=== PATIENT | female | born 1935 | race Caucasian/White ===

== ENCOUNTER 2020-08-29 16:17 | Inpatient (IN) | payer OTHER ==
[~2020-08-29] VITALS: Ht 162.6 cm; Wt 46.9 kg
--- NOTE | 2020-08-29 17:54 | NUR ---
PATIENT IS AN 85 YEAR OLD FEMALE WHO ARRIVED TO THE [facility] UNIT FROM [facility] AT 1441HOURS, ACCOMAPNIED BY TWO PARAMEDICS. PATIENT IS ALERT, AND ORIENTED X 1-2, KNOWS HER NAME, AND PLACE. LCTA, RESP EVEN, UNLABORED, NO SOA/CYANOSIS NOTED. BS+X4, ABD SOFT, NON-TENDER TO TOUCH. PATIENT USES WHEEL CHAIR FOR MOBILITY, GAIT UNSTEADY. ACCORDING TO REPORT, PATIENT LIVES AT [facility], SENT TO [facility] FOR ULTERED MENTAL STATUS. REPORT ALSO STATES PATIENT WAS PRESENTING WITH INCREASE AGGRESSION, LABILE, NON-SENSICAL SPEECH, INCREASE AUDITORY HALLUCINATION, DELUSION-SEEING ANTS, YELLING, HITTING, AND KICKING TRASH CAN. OTHER MNEDICAL HX INCLUDES DEPRESSION, HTN, HLD, OSTEOPOROSIS, COVID POSITIVE ON 08/06/20, AND COVID NEGATIVE ON 08/28/20. PATIENT HAD MED FORMED SOFT BOWEL MOVEMENT SHORTLY AFTER ARRIVAL TO THE UNIT, GOOD PERICARE GIVEN. TREATMENT/FALL CONSENT OBTAINED FROM DPOA -SON (TONE) VIA PHONE. PATIENT IS ABLE TO FEED SELF, APPETITE FAIR. PATIENT CURRENTLY IN DAY ROOM SITTING ON A WHEELCHAIR. PATIENT DENIES SUICIDAL IDEATION. NO AGGRESSION OR AGITATION NOTED AT THIS TIME. NO SIGN OF ACUTE DISTRESS NOTED, WILL MONITOR FOR SAFETY.
[2020-08-29 20:15] VITALS: BP 139/82
[2020-08-30 00:36] VITALS: BP 139/82
--- NOTE | 2020-08-30 00:44 | NUR ---
Assumed care on 08/29/20 @ 19:15, seated in a w/c in the day room. Alert and oriented x2 to person and place. Cooperates with assessment, HRRR, LungsCTA, ABD Nx4Q. Takes meds whole with water. Cooperates in care and able to stand and transfer to toilet and bed. Will continue to monitor for safety and comfort as per unit protocol.
[2020-08-30 07:25] VITALS: BP 148/63
[2020-08-30 11:56] VITALS: BP 148/63
--- NOTE | 2020-08-30 17:30 | NUR ---
1710 RESUMMED CARE FROM OVERNIGHT SHIFT THIS AM, PATIENT IN ROOM ASLEEP WOKE PATIENT UP TO COME TO DAY ROOM. PATIENT ATE BREAKFAST TOOK MEDICATION WITHOUT INCIDENCE. PATIENTS ABDOMEN SOFT FLAT BOWEL SOUNDS PRESENT LUNGS CLEAR PATIENT ORIENT TO SELF AND PLACE. PATIENT DENIES SI/HI/AH/VH AT PRESENT PATIENT HAS NOT DISPLAYED ANY BEHAVIORS. WILL CONTINUE TO MONITOR PATIENT FOR SAFETY AND BEHAVIORS.
[2020-08-30 19:42] VITALS: BP 105/54
--- NOTE | 2020-08-31 04:34 | NUR ---
Assumed care of pt @ 1900. Pt calm et cooperative this shift. Took medications crushed in pudding without difficulty. Ambulates with assistance of w/c. GEORGES. Health assessment with no abnormalities noted at present time. Denies SI/HI/AVH at present time. Currently resting in bed with eyes closed. Will continue to monitor per unit protocol.
[2020-08-31 07:52] VITALS: BP 128/70
--- NOTE | 2020-08-31 10:49 | NUR ---
Care assumed of patient at 0715: Patient resting in bed at start of shift. Alert and oriented to person only. Confused and forgetful. Calm and cooperative. Ate 40% breakfast and 100% Ensure supplement. Took AM medication crushed without difficulty. Continent of bladder. Requires mod assist x1 for transfers. No aggression or agitation observed. Denies SI/HI/AH/VH. No delusional or paranoia behaviors observed. Currently watching animal video with peers in dayroom.
--- NOTE | 2020-08-31 16:14 | H ---
[facility] [place] [address] HISTORY AND PHYSICAL Name: ALISON DANG Room #: 520B-B ADM IN M.R.#: [id number] Admission: 08/29/20 Attend Phys: Scott Rincon DO Discharge: Date of : 39 Report #: [id number] THIS REPORT FOR: cc: ZEESHAN - No family physician/PCP FAM - No family physician/PCP Scott Rincon DO ~ CC: Scott BYERS physician/PCP DATE OF SERVICE: 08/29/2020 INPATIENT PSYCHIATRIC EVALUATION ATTENDING PSYCHIATRIST: Scott Rincon DO HEALTH UNIT CLERK: Mike Mayo MD REASON FOR PSYCHIATRIC ADMISSION: Change in behavior, isolating in room, decreased eating, drinking and hygiene, increased aggression, labile mood with nonsensical speech, increased frequency of auditory and visual hallucinations, yelling, hitting nurse, taking trashcans in hands for last two 2 weeks. HISTORY OF PRESENT ILLNESS: This is an 85-year-old female residing at [facility] since 2007, who is medically cleared and seen in the [facility] ED. The patient has a past medical history of dementia, schizophrenia, fainting spells, hypothyroidism, GERD, coronary artery disease, seizures, osteoporosis. PSYCHIATRIC HISTORY/ Medical History: Includes as stated depression, schizophrenia and dementia. Additional medical problems, hypertension and hyperlipidemia. She was COVID positive on 08/06/2020 and negative 08/28/2020. She was treated for pneumonia with a Z-JORGE. Her PCP is Dr. Wilson. Pneumonia vaccine 11/04/2015. Flu shot 07/18/2020. From the [facility] ER, their signature screener found out that since being isolated to a different room the patient is decompensated, this probably was due to COVID isolation as stated above, decreased eating, drinking, hygiene, increasing aggressiveness. Apparently, she had a similar episode in wheelchair today. . The patient can walk, but she chooses not to. Apparently, she has not worked in years. Per son she goes through these episodes. She has been yelling at her roommate last few days, taking trashcans, very delusional, seeing things on the floor, disorganized. [facility] [address] [place] [address] HISTORY AND PHYSICAL Name: ALISON DANG Room #: 520B-B ADM IN M.R.#: [id number] Admission: 08/29/20 Attend Phys: Scott Rnicon DO Discharge: Date of : 39 Report #: [id number] Apparently, she drinks coffee all day yesterday, nothing today and is complaining before. Basically, the rest of the screeners notes are reptition of what I have already described. ADDITIONAL INFORMATION: From [facility] medications are fairly numerous, olanzapine 1.25 mg oral once a day, then 7 days, then stop. zonisamide 100 mg oral daily, hydrocodone/acetaminophen 5/325 one to two tabs q. 4 hours p.r.n., Synthroid 100 mcg daily, lisinopril 2.5 mg daily, folic acid 0.8 mg p.o. daily, "medication" 20 mg oral capsule daily, Tylenol p.r.n., meclizine 12.5 mg oral 3 times daily as needed for dizziness, artificial tears, albuterol She is also on Keppra 1500 mg twice per day, Lamictal 250 mg daily, Lipitor 20 mg oral daily. SARS-CoV-2 tests from 08/06/2020 was verified. LABORATORY DATA: From the ER, white count 6.2, H and H 12.8 and 33.8, platelet count 202. Absolute neutrophil count 4.54. Sodium 149, potassium 4.3, chloride 111, bicarbonate 23, glucose 94, BUN 34, creatinine 0.8, AST 31, alkaline phosphatase 101, ALT 20, direct bilirubin 0.4, total bilirubin 0.7, total protein 7.3, albumin 4.2, globulin 3.1, calcium 9.9, estimated GFR greater than 60. Troponin high sensitivity so it was 25, which I guess we are worried about. TSH 0.535. Urine drug screen was negative. Stat urine was positive for phencyclidine. She is not an illicit drug user. Coronavirus test was negative. PT 7.2. INR 1.5, PTT 30.3. Urinalysis was negative. EKG done at [facility] showed sinus rhythm, QTc 426, QT 350 milliseconds, NH interval 199 milliseconds. On interview, the patient was not oriented to month, day, date, year. There is some slowness of response. PHYSICAL EXAMINATION: MUSCULOSKELETAL: Seated in wheelchair. Gait not tested. MENTAL STATUS EXAMINATION: This is a well-developed, unkempt appearing female appearing at least stated age. Attention limited. Concentration limited. Speech slow, soft. Thought process is linear and very limited in what she could track with. Thought content, relative poverty of thought. No psychomotor agitation. No psychomotor retardation. She did mention she did not like being here. Denied pain, denied other complaints. Denies thoughts of harming herself or others. Denied auditory, visual, or tactile hallucinations. Memory not formally tested, known to be impaired. Insight impaired, judgment impaired. Fund of knowledge well below average. FORMULATION: An 85-year-old female sent over from [facility] via the [facility] for a decompensation in behavior. The patient with a [facility] [address] [place] [address] HISTORY AND PHYSICAL Name: ALISON DANG Room #: 520B-B ADM IN M.R.#: [id number] Admission: 08/29/20 Attend Phys: Scott Rincon DO Discharge: Date of : 39 Report #: [id number] known history of a neurodegenerative disorder and schizophrenia spectrum illness. DIAGNOSES: At this time, major neurocognitive disorder with behavioral disturbance, schizophrenia by history and current recommendations at this time, would continue zonisamide 100 mg p.o. daily, lamotrigine 250 mg p.o. b.i.d., Keppra 1500 mg p.o. b.i.d. OTHER CONCERNS: The patient has treatment resistant seizures likely since she is on 3 anticonvulsants I would like to see how the patient looks tomorrow morning, so I am going to hold off starting an antipsychotic. PLAN: Evaluate and Stabilize. We will need to make contact with her DPOA is staying so I need to get additional information from them about the case in which she was felt best to be. Time spent on this case about 45 minutes. STRENGTHS: She is insured, has family support. WEAKNESSES: Pretty advance dementia, poor coping skills. She is a full code. ALLERGIES: No known allergies. <ELECTRONICALLY SIGNED> By: Scott Rincon DO 08/31/20 1614 [id number] Scott Rincon DO /nt
[2020-08-31 19:34] VITALS: BP 104/62
[2020-08-31 21:46] VITALS: BP 128/70
--- NOTE | 2020-09-01 05:22 | NUR ---
ASSUMED PT'S CARE @ 1900. PT ORIENTED TO SELF. CONFUSED. FORGETFUL. PT WAS PLEASANT AND COOPERATIVE WITH CARE. PT WAS ON W/C SITTING IN THE DAYROOM BEGINNING OF SHIFT. PT FINALLY LAID BACK IN BED AT ABOUT 2200 AND CURRENTLY STILL IN BED. PT HOWEVER, DID NOT GET ANY SLEEP THIS SHIFT. PT CURRENTLY IN BED, LAYING QUIETLY STILL AWAKE. FALL PRECAUTIONS IN PLACE. WILL CONTINUE TO MONITOR.
[2020-09-01 10:18] VITALS: BP 125/65
--- NOTE | 2020-09-01 11:01 | NUR ---
1100 RESUMMED CARE FROM OVERNIGHT SHIFT THIS AM, PATIENT IN DAYROOM QUIET. PATIENT ATE BREAKFAST TOOK MEDICATION CRUSHED IN APPLESAUCE, PATIENTS ABDOMEN SOFT FLAT BOWEL SOUNDS PRESENT. LUNGS CLEAR PATIENT ORIENTED TO SELF PATIENT; IS CONFUSED AND CANNOT TELL ME ABOUT SI/HI/AH/VH AT PRESENT. PATIENT HAS NOT DISPLAYED ANY BEHAVIORS WILL CONTINUE TO MONITOR FOR SAFETY AND BEHAVIORS.
--- NOTE | 2020-09-01 15:10 | NUR ---
SW completed patients assessment and treatment plan with patients Arash Duffy who is also her DPOA.
[2020-09-01 19:38] VITALS: BP 101/61
--- NOTE | 2020-09-02 01:09 | NUR ---
Assumed care of patient this pm shift. Patient is impulsive and likes to wander in the wheelchair. Alert and oriented to self only. Very confused. Denies hi/si. Denies pain. Vital signs are stable. Assessment shows no signs of acute distress. Patient takes medications whole with thin liquids. We will continue to monitor per hospital policy.
[2020-09-02 09:46] VITALS: BP 120/63
--- NOTE | 2020-09-02 18:25 | NUR ---
0700 ASSUMED CARE OF PATIENT, PATIENT IN BED AT THAT TIME. 0800 PATIENT ASSISTED TO TRANSFER TO AND OUT TO DAYROOM. LAP RACHELLE ON WITH FASTEN TO FRONT. PATIENT UNSTEADY WITH TRANSFER. PATIENT ATE BREAKFAST FEEDING SELF. PATIENT CALM AND QUIET, DOES NOT ANSWER QUESTIONS. LS CLEAR, BS ACTIVE. MEDICATIONS REFUSED BY PATIENT. NOTIFIED. PATIENT WORKED WITH PT TODAY. SLEEPING IN DAYROOM OFF AND ON.
[2020-09-02 20:27] VITALS: BP 122/73
[2020-09-02 20:40] VITALS: BP 122/73
[2020-09-03 09:02] VITALS: BP 117/64
--- NOTE | 2020-09-03 10:13 | NUR ---
[facility]ULEMA received the fax number of to fax updates to. ZULEMA faxed updates to [facility]. ZULEMA team will continue to update pt during her stay on this unit.
--- NOTE | 2020-09-03 18:39 | NUR ---
0700 ASSUMED CARE OF PATIENT, PATIENT ASLEEP IN BED AT THAT TIME. PATIENT OUT TO DAYROOM VIA WC WITH ASSIST X1 TRANSFERING. PATIENT FEEDS SELF AND REFUSES HELP. MEDICATIONS GIVEN WITH OUT DIFFICULTY IN AM. PATIENT NOTED PROPELLING SELF IN WC. SLEEPS OFF AND ON IN DAYROOM. VS WNL, NO FEVER, NO COUGH NOTED. LUNG SOUNDS CLEAR, BS ACTIVE. PATIENT CALM AND COOPERATIVE.
[2020-09-03 19:30] VITALS: BP 118/63
--- NOTE | 2020-09-04 05:00 | NUR ---
09-03-20 CARE TRANSFERRED 0. PT AAOX1, VSS, RR EVEN AND NONLABORED ON RA. PT DENIES ANY PAIN AND SI/HI. PT PRESENTED CALM AND COOPERATIVE, PT TOLERATED COVID PCR TESTING WELL. DURING MEDICATION ADMIN PT HAD NO DIFFICULTIES. LATER RECEIVED UPDATE FROM LAB THAT PT IS COVID19 POSITIVE. ZERO S/S OF ACUTE DISTRESS NOTED. 0510 REPORT GIVEN TO RN IN SICU, CARE IS TRANSFERRING.
--- NOTE | 2020-09-04 06:09 | NUR ---
PT TRANSFERRED TO RM 22O FROM 5S @ ABOUT 0540. PT RESTING COMFORTABLY IN BED. COVID +. FALL PRECAUTIONS IN PLACE. CALL LIGHT WITHIN REACH. WILL CONTINUE TO MONITOR.
[2020-09-04 10:00] VITALS: BP 140/46
[2020-09-04 11:48] VITALS: BP 140/46
--- NOTE | 2020-09-04 12:03 | NUR ---
ZULEMA contacted [facility] and provided an update to the compliance administrator about pt being ready for d/c. The admin and ZULEMA agreed upon an 11am discharge in which will transport pt back to her facility. ZULEMA team will continue to follow pt during her stay on this unit.
--- NOTE | 2020-09-04 13:37 | NUR ---
1335 RESUMMED CARE FROM OVERNIGHT THIS AM, PATIENT IN ROOM SLEEPING. PATIENTS ABDOMEN SOFT FLAT BOWEL SOUNDS PRESENT LUNGS CLEAR. PATIENT IS ORIENTED TO SELF ONLY. PATIENT NOT EATING OR DRINKING TO MUCH, SHE CANNOT TELL ME ABOUT SI/HI/AH/VH. PATIENT HAS UNSPECIFIED PSYCHOSIS PATIENT QUIET CALM WILL CONTINUE TO MONITOR FOR SAFETY AND BEHAVIORS. WILL ALSO ENCOURAGE DRINKING AND EATING.
[2020-09-04 21:03] VITALS: BP 140/65
--- NOTE | 2020-09-05 05:48 | NUR ---
PT ORIENTED TO HIMSELF. CONFUSED. PT WAS CALM AND COOPERATIVE WITH CARE. TOOK MEDS WHOLE ORDERED. FALL PRECAUTION IN PLACE. PT SLEPT WELL THIS SHIFT. CALL LIGHT WITHIN REACH. NO BM NOTED TODAY. WILL CONTINUE TO MONITOR.
[2020-09-05 07:50] VITALS: BP 124/74
[2020-09-05 09:32] VITALS: BP 124/74
[2020-09-05] MEDS ORDERED: LISINOPRIL2.5 MG PO (10:50)
[2020-09-05] MEDS ORDERED: ZONISAMIDE 100100 M1 PO (10:51)
[2020-09-05] MEDS ORDERED: HALOPERIDOL 1 MG1 MG PO (10:52)
[2020-09-05] MEDS ORDERED: LAMICTAL100 MG PO (10:52)
[2020-09-05] MEDS ORDERED: KEPPRA 500 MG500 M1 PO (10:52)
[2020-09-05] MEDS ORDERED: SYNTHROID100 MC1 PO (10:53)
[2020-09-05] MEDS ORDERED: FOLIC ACID1 MG PO (10:53)
--- NOTE | 2020-09-05 11:18 | NUR ---
PT LAYING IN BED COMFORTABLY WITH NO SIGNS OF BEHAVIORAL ISSUES. WILL ENGAGED IN SMALL CONVERSATION. ORIENTED TO SELF. CONFUSED AND FORGETFUL. DISCHARGE ORDERS BY DR. GREENE. REPORT CALLED TO RECIEVING RN AT FACILITY. PATIENT LEFT FACILITY IN WHEELCHAIR WITH TRANSPORTING TO MAIN ENTERANCE. CHART COPY SENT WITH PATIENT.
--- NOTE | 2020-09-10 22:59 | D ---
[facility] [place] [address] DISCHARGE SUMMARY Name: ALISON DANG Room #: 220-P [facility] IN M.R.#: [id number] Admission: 08/29/20 Attend Phys: Scott Rincon DO Discharge: 09/05/20 Date of : 39 Report #: [id number] THIS REPORT FOR: cc: FAM - No family physician/PCP FAM - No family physician/PCP Scott Rincon DO ~ DATE OF SERVICE: 09/05/2020 INPATIENT PSYCHIATRIC DISCHARGE SUMMARY ATTENDING PSYCHIATRIST: Scott Rincon DO. MEDICAL STAFF ASSISTANT: Mike Mayo M.D. DISCHARGE DIAGNOSES: Unspecified psychosis, improved. The patient has a history of major neurocognitive disorder. She does have a significant seizure disorder history. ADDITIONAL MEDICAL COMORBIDITIES: As follows: They include COVID-19 positive, residual infiltrate, currently not experiencing shortness of breath; hypertension, on lisinopril; hypothyroidism, on levothyroxine; hyperlipidemia, on statin; history of seizure disorder, not sure that is true, but hospitalist noted it. DISCHARGE PLAN: The patient is discharged to [facility], where she was residing before the hospitalization. The patient will receive psychiatric and medical care provided by that facility. Her DPOA is her son, Andrez, spoke to earlier on admission. DISCHARGE MEDICATIONS: As follows: Lisinopril 2.5 mg oral daily for hypertension; lamotrigine 250 mg p.o. daily for seizure disorder; Keppra 1500 mg p.o. b.i.d. for seizure disorder; zonisamide 100 mg p.o. daily; haloperidol 1 mg at 0900, 1500, 2100 for psychosis, leave her on that for now and taper off after roughly 2 weeks at nursing facility; levothyroxine 100 mcg oral daily for hypothyroidism; folic acid 1 mg p.o. daily. LABORATORY DATA: Significant laboratories from this admission, she was COVID-19 positive coming into it. She was retested by accident earlier this week and she was positive there. All her laboratories were done at the hospital she was at for emergency room purposes. REASON FOR ADMISSION: An 85-year-old female, residing at [facility] since 2007. Apparently, she has had decreased eating, isolating in room, drinking and hygiene concerns, increased aggression, hitting others. HOSPITAL COURSE: The patient was admitted to the Geriatric Psychiatry Unit. [address] [address] DISCHARGE SUMMARY Name: ALISON DANG Room #: 220-P [facility] IN M.R.#: [id number] Admission: 08/29/20 Attend Phys: Scott Rincon DO Discharge: 09/05/20 Date of : 39 Report #: [id number] The patient had a fairly quiescent stay. I started her on haloperidol. None of the serious behaviors the nursing facility reported or we observed. I do feel and agree the patient does have an underlying dementia and she should be transitioned to a memory care setting. Allegedly, she was in at [facility]; however, given the COVID epidemic, some attributes of memory care are becoming harder to maintain and we are seeing more behavioral problems as a result. PHYSICAL EXAMINATION: VITAL SIGNS: On day of discharge are as follows: Temperature 36.6, pulse 78, respirations 15, BP 124/74, O2 sat 98%. MUSCULOSKELETAL: In bed. Gait not tested. I believe she can ambulate with a walker, but I have not seen much in the last few days. MENTAL STATUS EXAMINATION: This is a well-developed, thin, frail female, appearing at least stated age. The patient's attention is limited, concentration is limited. Speech - low volume, normal rate and tone. Thought process is linear, generally goal directed. Thought content, poverty of thought. No psychomotor agitation, some psychomotor retardation. Denied SI or HI. Denied auditory, visual, or tactile hallucinations. Thought content focused on discharge. Memory not formally tested. Insight limited. Judgment limited. Fund of knowledge diminished. Please note for diet, she should get Ensure Enlive twice daily due to low BMI. PROGNOSIS: For this patient is guarded given her medical morbidities, long-term institutional placement and presence of neurocognitive disorder, psychiatric care facility is recommended in addition to general medical care. <ELECTRONICALLY SIGNED> By: Scott Rincon DO 09/10/20 2259 05 06 Scott Rincon DO /nt
== END 2020-09-05 11:21 | DRG 56 ==
LOC: SBH 16:17 → SICU 09-04 05:33
PROVIDERS: ADMIT Psychiatry & Neurology Psychiatry; ATTEND Psychiatry & Neurology Psychiatry
DX: G30.9 Alzheimer's disease, unspecified (principal); U07.1 COVID-19; J12.89 Other viral pneumonia; F01.51 Vascular dementia, unspecified severity, with behavioral disturbance; F02.81 Dementia in other diseases classified elsewhere, unspecified severity, with behavioral disturbance; F32.9 Major depressive disorder, single episode, unspecified; F20.9 Schizophrenia, unspecified; E78.5 Hyperlipidemia, unspecified; E03.9 Hypothyroidism, unspecified; K21.9 Gastro-esophageal reflux disease without esophagitis; I25.10 Atherosclerotic heart disease of native coronary artery without angina pectoris; M81.0 Age-related osteoporosis without current pathological fracture; G40.409 Other generalized epilepsy and epileptic syndromes, not intractable, without status epilepticus; Z79.899 Other long term (current) drug therapy
CPT/HCPCS: 10880; 15002